=== PATIENT | female | born 1980 | race American Indian/Alaskan Native ===

== ENCOUNTER 2017-06-06 23:10 | Inpatient (IN) | payer SELFPAY ==
[2017-06-06] MEDS ORDERED: PITOCin/NS 20 UNIT/1000ML DRIP 20,000 MILLIUNITS/1,000 ML BAG IV ONE (23:26)
[2017-06-06] MEDS ORDERED: XYLOCAINE 2% INFILTRATI ONE (23:32)
--- NOTE | 2017-06-06 23:49 | Procedure Note ---
OB Delivery Note - Delivery Date of Delivery: 06/06/17 Surgeon: NOHELIA CHAVIRA Estimated blood loss: 200cc - Vaginal Delivery presentation: vertex Delivery position: OA Intrapartum events: precipitous labor- <3hr Delivery induction: none Delivery monitor: none Route of delivery: Delivery placenta: spontaneous Delivery cord: 3 umbilical vessels Episiotomy: none Delivery laceration: 3rd degree Delivery repair: vicryl Anesthesia: local - Infant A at 1 minute: 8 at 5 minutes: 9 Infant Gender: Female (Del @ 11:22, weight 6 lbs. 8 oz. or 2950 g)
--- NOTE | 2017-06-06 23:57 | History and Physical Report ---
History of Present Illness Date of examination: 06/06/17 Date of admission: 06/06/17 23:19 Chief complaint: Precipitate labor History of present illness: 37-year-old 001 at term presents to labor and delivery in active labor fully dilated, she is a [facility] patient's. Past History Past Medical History: no pertinent history Past Surgical History: myomectomy (in [place]) [employer] History: denies: chlamydia, gonorrhea, hepatitis B, hepatitis C, herpes, HIV , syphilis Social history: , full code. denies: smoking, alcohol abuse, prescription drug abuse, IV drug use - Obstetrical History Expected Date of Delivery: 06/18/17 Actual Gestation: 38 Week(s) 2 Day(s) : 2 Para: 1 Review of Systems Constitutional: no fever, no chills, no chronic headaches Cardiovascular: no chest pain, no syncope, no lightheadedness, no shortness of breath, no high blood pressure Respiratory: no shortness of breath, no dyspnea on exertion, no sleep apnea Gastrointestinal: no abdominal pain, no nausea, no vomiting Genitourinary: no vaginal discharge, no leakage of fluid - Vital Signs Vital signs: Vital Signs Pulse BP 98 H 143/68 06/06/17 23:34 06/06/17 23:34 Temp Pulse Resp BP Pulse Ox 90 114/74 06/06/17 23:43 06/06/17 23:43 - Physical Exam Abdomen: Positive: normal appearance, soft. Negative: distention, tenderness, guarding, rigidity Genitourinary (Female): Positive: normal external genitalia Uterus: Negative: tender Results All other labs normal. Assessment and Plan PPD#0 s/p -stable P: -Routine care -Anticipate discharge in 24-48 hrs - Patient Problems (1) Precipitate labor, delivered, current hospitalization Current Visit: Yes Status: Acute (2) 38 weeks gestation of Current Visit: Yes Status: Acute
[2017-06-07] MEDS ORDERED: ZOFRAN IV PRN (00:12)
[2017-06-07] MEDS ORDERED: PHENERGAN PO PRN (00:12)
[2017-06-07] MEDS ORDERED: LANSINOH TP PRN (00:12)
[2017-06-07] MEDS ORDERED: MILK OF MAGNESIA PO PRN (00:12)
[2017-06-07] MEDS ORDERED: DULCOLAX PR PRN (00:12)
[2017-06-07] MEDS ORDERED: PHENERGAN PR PRN (00:12)
[2017-06-07] MEDS ORDERED: TUCKS PAD TP PRN (00:12)
[2017-06-07] MEDS ORDERED: BENADRYL PO PRN (00:12)
[2017-06-07] MEDS ORDERED: TYLENOL PO PRN (00:12)
[2017-06-07] MEDS ORDERED: NORCO 5/325 PO PRN (00:12)
[2017-06-07] MEDS: MOTRIN PO SCH ×3 (00:46→18:58)
[2017-06-07] MEDS ORDERED: PITOCin/NS 20 UNIT/1000ML DRIP 20 UNITS/1,000 ML BAG IV SCH (01:00)
[2017-06-07] MEDS ORDERED: SODIUM CHLORIDE FLUSH SYRINGE 10 ML IV PRN (01:00)
[2017-06-07 01:07] LABS: Hematocrit 36.5 % (30.3-42.9)
[2017-06-07 01:28] LABS: Hematocrit 35.7 % (30.3-42.9); Hemoglobin 12.1 gm/dl (10.1-14.3); Mean Corpuscular HGB Conc 34 % (30-34); Mean Corpuscular Hemoglobin 31 pg (28-32); Mean Corpuscular Volume 92 fl (79-97); Platelet Count 182 K/mm3 (140-440); Red Blood Count 3.87 M/mm3 (3.65-5.03); Red Cell Distribution Width 13.7 % (13.2-15.2); White Blood Count 9.4 K/mm3 (4.5-11.0)
--- NOTE | 2017-06-07 09:57 | Progress Note ---
Assessment and Plan PPD#1 s/p -stable P: -Routine care -Anticipate discharge in 24-48 hrs - Patient Problems (1) Precipitate labor, delivered, current hospitalization Current Visit: Yes Status: Acute (2) 38 weeks gestation of Current Visit: Yes Status: Acute Subjective - Subjective Date of service: 06/07/17 Principal diagnosis: PPD#1 Interval history: Seen and examined, stable doing well. No issues and desires discharge home today Patient reports: appetite normal, voiding normally, pain well controlled, ambulating normally, no dizzy ambulation, no nauseated : doing well Objective - Vital Signs Latest vital signs: Vital Signs Temp Pulse Resp BP 06/07/17 09:26 98.8 F 90 20 110/66 06/07/17 05:50 98.5 F 67 18 110/59 06/07/17 01:35 97.9 F 80 18 112/61 06/07/17 00:59 98.6 F 18 06/07/17 00:58 77 116/66 06/07/17 00:46 18 06/07/17 00:35 79 121/66 06/07/17 00:05 81 128/70 06/06/17 23:50 88 125/70 06/06/17 23:43 90 114/74 06/06/17 23:34 98 H 143/68 Intake and Output 06/06/17 06/07/17 06/07/17 22:59 06:59 14:59 Intake Total 120 Balance 120 Intake: Intake, Free Water 120 Other: Weight 70 kg Estimated Blood Loss 200 - Exam Abdomen: Present: normal appearance, soft. Absent: distention, tenderness, guarding, rigidity Uterus: Present: fundal height below umbilicus. Absent: tenderness Extremities: Present: normal
--- NOTE | 2017-06-07 09:58 | Discharge Summary ---
Providers - Providers Date of Admission: 06/06/17 23:19 Date of discharge: 06/07/17 Attending physician: NOHELIA CHAVIRA Primary care physician: NOHELIA CHAVIRA Hospitalization Reason for admission: active labor, IUP at term Delivery: Episiotomy: none Laceration: 3rd degree Incision: intact Other procedures: none complications: none Discharge diagnosis: IUP at term delivered baby: female Hospital course: Uncomplicated hospital course Condition at discharge: Good Disposition: DC-01 TO HOME OR SELFCARE - Discharge Diagnoses (1) Precipitate labor, delivered, current hospitalization Status: Acute (2) 38 weeks gestation of Status: Acute Plan - Discharge Medications Prescriptions: Ibuprofen [Motrin 600 MG tab] 600 mg PO Q8H PRN #30 tablet PRN Reason: Pain Multivitamin with Iron [Multivitamins with Iron] 1 each PO DAILY #30 tablet - Provider Discharge Summary Activity: no sex for 6 weeks, no heavy lifting 4 weeks, no strenuous exercise Diet: routine Additional instructions: [] Smoking cessation referral if applicable(refer to patient education folder for contact #) [] Refer to [facility] Booklet Call your doctor immediately for: * Fever > 100.5 * Heavy vaginal bleeding ( >1 pad per hour) * Severe persistent headache * Shortness of breath * Reddened, hot, painful area to leg or breast * Drainage or odor from incision. * Keep incision clean and dry at all times and follow doctor's instructions regarding bathing/showering - Follow up plan Follow up: NOHELIA CHAVIRA MD [Primary Care Provider] - 6 Weeks
[2017-06-07 13:13] LABS: Hematocrit 27.6 % (30.3-42.9); Hemoglobin 9.5 gm/dl (10.1-14.3)
[2017-06-07] MEDS: FEOSOL PO SCH (13:53)
[2017-06-07] MEDS: COLACE PO SCH (13:53)
[2017-06-07] MEDS: PRENATAL VITAMIN PO SCH (13:57)
[2017-06-08] MEDS: MOTRIN PO SCH ×4 (00:48→22:41)
[2017-06-08] MEDS: COLACE PO SCH ×2 (00:48→15:04)
[2017-06-08] MEDS: SENOKOT S PO SCH ×3 (00:48→22:41)
[2017-06-08] MEDS: FEOSOL PO SCH ×3 (00:48→22:40)
[2017-06-08] MEDS ORDERED: BOOSTRIX IM ONE (06:00)
[2017-06-08] MEDS: PRENATAL VITAMIN PO SCH (15:05)
[2017-06-08 17:09] VITALS: BP 110/65
== END 2017-06-08 23:05 | disposition home or self-care (01) | DRG 775 ==
LOC: TRG 23:10 → LD 23:19 → OB 06-07 02:38
PROVIDERS: ADMIT Obstetrics & Gynecology Gynecology; ATTEND Obstetrics & Gynecology Gynecology
PROC: 10E0XZZ Delivery of Products of Conception, External Approach (ICD-10-PCS; principal; 2017-06-06)
PROC: 0DQR0ZZ Repair Anal Sphincter, Open Approach (ICD-10-PCS; 2017-06-06)
DX: O62.3 Precipitate labor (principal); O70.20 Third degree perineal laceration during delivery, unspecified; Z3A.38 38 weeks gestation of pregnancy; Z37.0 Single live birth
CPT/HCPCS: 36415; 85014; 85018; 85027; 86706; 86850; 86900; 86901; 90471; 90715; 99211; A6250; G0463; J2590